=== PATIENT | male | born 2000 | race American Indian/Alaskan Native ===

== ENCOUNTER 2020-01-24 22:29 | Emergency (ER) | payer SELFPAY ==
[2020-01-24 22:35] VITALS: BP 148/66
[2020-01-25] MEDS ORDERED: IBUPROFEN 800 MG TAB PO ONE (04:35)
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
== END 2020-01-25 07:32 | disposition home or self-care (01) ==
LOC: ED 22:29
DX: S80.01XA Contusion of right knee, initial encounter (principal); R51 Headache; V89.2XXA Person injured in unspecified motor-vehicle accident, traffic, initial encounter; Y93.89 Activity, other specified; Y92.410 Unspecified street and highway as the place of occurrence of the external cause; Y99.8 Other external cause status
CPT/HCPCS: 99282